=== PATIENT | female | born 1995 | race Caucasian/White ===

== ENCOUNTER 2016-09-07 14:23 | Observation (INO) ==
--- NOTE | 2016-09-07 14:40 | Emergency Department Note ---
Disposition Time of Disposition: 15:09 <Kingsley Gilbert - Last Filed: 09/07/16 15:08> Time of Disposition: 17:47 <Luz Castro - Last Filed: 09/07/16 18:08> Clinical Impression: Tachycardia, Pharyngitis, Abnormal EKG Disposition: Admitted As Inpatient Condition: Good URI/Sore Throat HPI - General Source: patient Limitations: no limitations Nursing Notes Reviewed: Yes Vital Signs Reviewed: Yes - History of Present Illness Pt Subjective Complaint: sore throat, earache (right), other (sinus pain and pressure) Onset (ago): day(s) (2) Duration: gradually worsening Severity: mild Severity scale (1-10): 4 Improves with: nothing Worsens with: swallowing Context: sick contacts Associated symptoms: Reports: diaphoresis. Denies: fever, nasal congestion, chest pain, shortness of breath, abdominal pain, nausea, vomiting, diarrhea Treatments prior to arrival: other (dayquil) <Kingsley Gilbert - Last Filed: 09/07/16 15:08> <Luz Castro - Last Filed: 09/07/16 18:08> - General Chief Complaint: ED Upper Respiratory Infection Stated Complaint: sore throat, ear pain Time Seen by Provider: 09/07/16 14:26 - History of Present Illness HPI Narrative: Alert and oriented nontoxic-appearing 20-year-old female presents to emergency department for evaluation of sore throat, sinus pain and pressure, and a right earache. Patient states symptoms began 2 days ago and progressively gotten worse. She states that her significant other currently has strep throat. She denies any abdominal pain, nausea, vomiting, diarrhea. She denies any fevers or chills, however states that she has had intermittent episodes of diaphoresis. She denies any shortness of breath or chest pain. She is taking [id number] DayQuil with only modest relief of symptoms. (Kingsley Gilbert) - Related Data Home Medications Medication Instructions Recorded Confirmed D-Methorphan/PE/Acetaminophen 1 each PO Q6H PRN 09/07/16 09/07/16 [Vicks Dayquil Liquicaps] Allergies Allergy/AdvReac Type Severity Reaction Status Date / Time No Known Allergies Allergy Verified 02/26/15 12:31 All systems ED: reviewed and negative except as stated. Constitutional: Denies: fever, chills, weakness, weight change Eyes: Denies: eye pain, eye discharge, vision change ENT ED: Reports: as per HPI, ear pain (right), throat pain, congestion. Denies : dental pain, hearing loss, epistaxis, dysphagia Cardiovascular: Denies: chest pain, palpitations, dyspnea on exertion, edema, syncope Respiratory: Denies: cough, dyspnea, wheezes, hemoptysis, stridor Gastrointestinal: Denies: abdominal pain, nausea, vomiting, diarrhea, constipation, hematemesis, melena, hematochezia Genitourinary: Denies: dysuria, frequency, hematuria, discharge Musculoskeletal: Denies: back pain, neck pain, arthralgia, myalgia Integumentary: Denies: rash, abrasion, lesions Neurological: Denies: headache, weakness, numbness, paresthesias, confusion, abnormal gait, vertigo Psychiatric: Denies: anxiety, depression, suicidal thoughts, homicidal thoughts , auditory hallucinations, visual hallucinations Endocrine: Denies: fatigue Hematological/Lymphatic: Denies: easy bleeding, easy bruising Allergic/Immunologic: Denies: facial swelling, urticaria <Kingsley Gilbert R - Last Filed: 09/07/16 15:08> URI PMH - Past Medical History Medical history: Reports: migraine, SVT Surgical history: Reports: other Psychiatric history: Reports: no psych history - Social History Smoking Status: Former smoker Alcohol use: Reports: none Drug use: Reports: none <Kingsley Gilbert R - Last Filed: 09/07/16 15:08> Physical Exam - General Limitations: no limitations General appearance: alert, in no apparent distress - Head Head exam: atraumatic, normocephalic, normal inspection - Eye Eye exam: Present: normal appearance, PERRL, EOMI. Absent: nystagmus - ENT ENT exam: mucous membranes moist - Expanded ENT Exam External ear exam: Present: normal external inspection. Absent: periauricular adenopathy TM/Canal: Hemotympanum: Negative, Erythema: Negative, Bulging: Negative, Effusion: Negative, Perforation: Negative, Loss of Landmarks: Negative, Foreign body: Negative, Cerumen impaction: Negative, Canal discharge: Negative, Canal tenderness: Negative Nose exam: sinus tenderness (maxillary). negative: rhinorrhea Mouth exam: Present: normal external inspection, tongue normal. Absent: drooling, trismus, lip swelling Teeth exam: Present: normal inspection Throat exam: Present: tonsillar erythema (moderate), other (Patient is status post tonsillectomy, however, patchy exudate appears on the posterior pharynx.). Absent: R peritonsillar mass, L peritonsillar mass, muffled voice - Neck Neck exam: Present: normal inspection, full ROM, trachea midline, lymphadenopathy (Palpable tonsillar lymphadenopathy noted bilaterally) - Chest Chest inspection: Present: normal inspection, symmetric chest wall rise - Respiratory Respiratory exam: Present: normal lung sounds bilaterally. Absent: respiratory distress, wheezes, stridor, accessory muscle use, prolonged expiratory phase - Cardiovascular Cardiovascular exam: Present: regular rate, normal rhythm, normal heart sounds - Abdominal Exam Abdominal exam: Present: soft, Non-Tender, normal bowel sounds. Absent: tenderness, distention, guarding, rebound, rigidity - Extremities Exam Extremities exam: Present: normal inspection, full ROM. Absent: tenderness, pedal edema - Neurological Exam Neurological exam: Present: alert, oriented X3 - Psychiatric Psychiatric exam: Present: normal affect, normal mood - Skin Skin exam: Present: warm, dry, intact, normal color <Kingsley Gilbert - Last Filed: 09/07/16 15:08> Course <Kingsley Gilbert - Last Filed: 09/07/16 15:08> - Reevaluation(s) Time: 16:02 Time: 16:23 Time: 17:17 <Luz Castro - Last Filed: 09/07/16 18:08> Course Narrative: This patient was directly admitted into the fast track/super track area. I entered the room and asked the nurse was obtaining a set of triage vitals. The patient's heart rate was noted to fluctuate between 130 and 157. She denies any current chest pain, palpitations, or shortness of breath, however states that she was having all 3 of these to an extent yesterday evening. EKG was performed and shown to the attending physician, Dr. Gagnon, who recommends that the patient be moved out of the fast track/super track area and into a proper medical bed. 1505: I discussed this patient's case with Dr. Castro, as this patient will be moved into her assignment. As of this time, care of this patient has been assumed by Dr. Castro. (OfeliaKyaleey Yovana) - Reevaluation(s) Reevaluation #1: Patient is an otherwise healthy 20-year-old white female who was brought from the [facility] area by the [facility]NA[facility], for medical workup and the main side of the ED due to sinus tachycardia. Was reported that her heart rate in [facility] weighs between 130 and 160 bpm, and EKG was obtained in the [facility] area showing sinus tachycardia at 117 bpm with new T-wave inversion across the anterior leads. Patient at this time denies any form of chest pain pressure or heaviness. No episodes of syncope at home. No shortness of breath or cough or hemoptysis. Patient denies any symptoms of palpitations during this episode of fast heart rate. Patient does state that she had an episode of SVT during her , and was referred to [facility] and observed overnight with a Holter monitor during her for her SVT. Patient states she did not require any medication to slow her heart rate down at that time, and she was not prescribed any heart medications upon overnight observation for tachycardia. Patient had not had any cardiac history prior to her , and no episodes or cardiac evaluations following delivery of her child. Upon my evaluation of the patient she is very active chasing her toddler son around the room, in no acute distress. Upon resting and evaluating the patient , patient's heart rate remained in a sinus rhythm in the 90s, and at this time she denies any form of chest pain or pressure, no heaviness, no shortness of breath or dyspnea. Patient denies any current diaphoresis, no nausea vomiting, no back or abdominal pain. She states her main reason for evaluation today was a sore throat that she has had over the past 48 hours it has gradually worsened and has had a recent strep exposure with her boyfriend. Patient complains of pain with swallowing, although managing her secretions well, no stridor appreciated, no signs of respiratory distress. Patient nontoxic appearing. Patient has mild pharyngeal erythema without exudates, good dentition, floor the mouth is within normal limits. Patient with some mild cervical adenopathy in the bilateral anterior cervical chains. Remainder of her exam is unremarkable. At this time will hydrate the patient and obtain labs that were ordered from triage and will reevaluate patient with a repeat EKG following hydration. (Luz Castro) Reevaluation #2: Patient resting comfortably with stable vital signs. Remains asymptomatic, with the exception of mild sore throat. Awaiting IV fluids. Laboratory Results WBC 7.9 K/mcL (4.3-11.1) 09/07/16 15:21 RBC 4.63 M/mcL (3.82-4.97) 09/07/16 15:21 Hgb 14.1 g/dL (11.5-15.4) 09/07/16 15:21 Hct 41.8 % (35.3-44.9) 09/07/16 15: MCV 90.3 fL (83.0-100.0) 09/07/16 15: MCH 30.5 pg (28.0-33.3) 09/07/16 15: MCHC 33.7 g/dL (31.6-35.5) 09/07/16 15: RDW 12.4 % (11.5-14.5) 09/07/16 15:21 Plt Count 140 K/mcL (140-400) 09/07/16 15: MPV 13.2 fL (9.4-12.4) H 09/07/16 15: Immature Gran % 0.3 % (0-4) 09/07/16 15: Seg Neutrophils % 71.0 % 09/07/16 15:21 Lymphocytes % 21.0 % 09/07/16 15:21 Monocytes % 7.0 % 09/07/16 15:21 Eosinophils % 0.3 % 09/07/16 15:21 Basophils % 0.4 % 09/07/16 15:21 Neutrophils # 5.6 K/mcL (1.6-8.9) 09/07/16 15:21 Lymphocytes # 1.7 K/mcL (0.6-4.6) 09/07/16 15:21 Monocytes # 0.6 K/mcL (0.0-1.3) 09/07/16 15:21 Eosinophils # 0.0 K/mcL (0.0-0.6) 09/07/16 15:21 Basophils # 0.0 K/mcL (0.0-0.2) 09/07/16 15:21 PT 12.4 Seconds (9.4-12.1) H 09/07/16 15:21 INR 1.1 09/07/16 15:21 APTT 31.2 Seconds (26.0-36.0) 09/07/16 15:21 Sodium 138 mEq/L (136-145) 09/07/16 15:21 Potassium 3.9 mEq/L (3.5-4.5) 09/07/16 15:21 Chloride 106 mEq/L (98-109) 09/07/16 15:21 Carbon Dioxide 23 mEq/L (19-29) 09/07/16 15:21 BUN 15 mg/dL (7-20) 09/07/16 15:21 Creatinine 0.72 mg/dL (0.57-1.11) 09/07/16 15:21 Est GFR ( Amer) > 60 (> 60) 09/07/16 15:21 Est GFR (Non-Af Amer) > 60 (> 60) 09/07/16 15:21 BUN/Creatinine Ratio 21 (6-26) 09/07/16 15:21 Glucose 77 mg/dL (70-99) 09/07/16 15:21 Calculated Osmolality 286 (280-300) 09/07/16 15:21 Calcium 8.8 mg/dL (8.6-10.8) 09/07/16 15:21 Troponin I 0.00 ng/mL (0-0.03) 09/07/16 15:21 Impressions Chest X-Ray 09/07/16 14:53 IMPRESSION: No acute cardiopulmonary process. D/ / 09/07/2016 15:11:45 Valdemar Eagle MD / Citlali Reyna Interpreting Provider: Valdemar Eagle MD (Luz Castro) Reevaluation #3: Patient's IV fluids if completed, she is feeling better at bedside. Denies any active chest pain or pressure. Repeat EKG interpreted by myself without benefit of cardiology interpretation shows a normal sinus rhythm at 78 bpm with right axis deviation and T wave inversion in the anterior leads representing anterior ischemia. This is a new finding compared to her old EKG although similar to her presenting EKG. I do not have a good explanation for these EKG changes and feel that this requires further evaluation. I will discuss with the patient and offer admission for further evaluation of this. (Luz Castro) Vital Signs Temperature 97.7 F 09/07/16 14:28 Pulse Rate 135 09/07/16 14:28 Respiratory Rate 18 09/07/16 14:28 Blood Pressure 121/85 09/07/16 14:28 O2 Sat by Pulse Oximetry 98 09/07/16 14:28 Temperature 97.7 F 09/07/16 14:28 Pulse Rate 91 09/07/16 17:10 Respiratory Rate 16 09/07/16 17:10 Blood Pressure 135/86 09/07/16 17:10 O2 Sat by Pulse Oximetry 99 09/07/16 17:10 Oxygen Delivery Oxygen Delivery Room Air Upper Respiratory Infection - Medical Records Medical records reviewed: Yes I reviewed the patient's medical records. - Lab Data Lab results reviewed: Yes I reviewed the patient's lab results. - EKG Data EKG attestation: Yes I reviewed and interpreted this EKG. <OfeliaKingsley - Last Filed: 09/07/16 15:08> - Lab Data Result diagrams: 09/07/16 15:21 09/07/16 15:21 - Radiology Data Radiology results reviewed: Yes I reviewed the patient's radiology results. <Luz Castro - Last Filed: 09/07/16 18:08> - [facility] Narrative Medical decision making narrative: Patient resting comfortably at this time with improved vital signs following IV fluid administration. Current heart rate is 78 normal sinus. Patient is asymptomatic at this time. Repeat EKG shows persistent T wave inversion across the anterior leads. EKG changes are unclear although patient did have tachycardia in triage up to 180 bpm and reported symptoms of chest pain over the last 48 hours but none currently. Spoke with hospitalist Dr. JEFFRIES at 1745 who accepted the patient for admission for further evaluation but did request that we touch base with cardiology to review the EKG. I will page the information security manager who is Dr. Mcdaniel currently. Patient will be admitted for further evaluation and is stable at this time. Spoke with Dr. Mcdaniel, on for cardiology this evening at 1805. Discussed the patient's ED course and EKG changes. He agreed to consult on the patient recommended serial troponins be ordered and he would see the patient in the morning. (Luz Castro) - Lab Data Lab Results 09/07/16 09/07/16 09/07/16 Range/Units 15:21 15:21 15:21 WBC 7.9 (4.3-11.1) K/mcL RBC 4.63 (3.82-4.97) M/mcL Hgb 14.1 (11.5-15.4) g/dL Hct 41.8 (35.3-44.9) % MCV 90.3 (83.0-100.0) fL MCH 30.5 (28.0-33.3) pg MCHC 33.7 (31.6-35.5) g/dL RDW 12.4 (11.5-14.5) % Plt Count 140 (140-400) K/mcL MPV 13.2 H (9.4-12.4) fL Immature Gran % 0.3 (0-4) % Seg Neutrophils % 71.0 % Lymphocytes % 21.0 % Monocytes % 7.0 % Eosinophils % 0.3 % Basophils % 0.4 % Neutrophils # 5.6 (1.6-8.9) K/mcL Lymphocytes # 1.7 (0.6-4.6) K/mcL Monocytes # 0.6 (0.0-1.3) K/mcL Eosinophils # 0.0 (0.0-0.6) K/mcL Basophils # 0.0 (0.0-0.2) K/mcL PT 12.4 H (9.4-12.1) Seconds INR 1.1 APTT 31.2 (26.0-36.0) Seconds Sodium 138 (136-145) mEq/L Potassium 3.9 (3.5-4.5) mEq/L Chloride 106 (98-109) mEq/L Carbon Dioxide 23 (19-29) mEq/L BUN 15 (7-20) mg/dL Creatinine 0.72 (0.57-1.11) mg/dL Est GFR ( Amer) > 60 (> 60) Est GFR (Non-Af Amer) > 60 (> 60) BUN/Creatinine Ratio 21 (6-26) Glucose 77 (70-99) mg/dL Calculated Osmolality 286 (280-300) Calcium 8.8 (8.6-10.8) mg/dL Troponin I (0-0.03) ng/mL TSH (0.350-4.840) mcIU/mL 09/07/16 09/07/16 Range/Units 15:21 15:21 WBC (4.3-11.1) K/mcL RBC (3.82-4.97) M/mcL Hgb (11.5-15.4) g/dL Hct (35.3-44.9) % MCV (83.0-100.0) fL MCH (28.0-33.3) pg MCHC (31.6-35.5) g/dL RDW (11.5-14.5) % Plt Count (140-400) K/mcL MPV (9.4-12.4) fL Immature Gran % (0-4) % Seg Neutrophils % % Lymphocytes % % Monocytes % % Eosinophils % % Basophils % % Neutrophils # (1.6-8.9) K/mcL Lymphocytes # (0.6-4.6) K/mcL Monocytes # (0.0-1.3) K/mcL Eosinophils # (0.0-0.6) K/mcL Basophils # (0.0-0.2) K/mcL PT (9.4-12.1) Seconds INR APTT (26.0-36.0) Seconds Sodium (136-145) mEq/L Potassium (3.5-4.5) mEq/L Chloride (98-109) mEq/L Carbon Dioxide (19-29) mEq/L BUN (7-20) mg/dL Creatinine (0.57-1.11) mg/dL Est GFR ( Amer) (> 60) Est GFR (Non-Af Amer) (> 60) BUN/Creatinine Ratio (6-26) Glucose (70-99) mg/dL Calculated Osmolality (280-300) Calcium (8.6-10.8) mg/dL Troponin I 0.00 (0-0.03) ng/mL TSH 2.482 (0.350-4.840) mcIU/mL - EKG Data EKG results narrative: EKG reviewed by Dr. Gagnon as well. EKG shows a sinus tachycardia with right axis deviation at a rate of 117 bpm. No ectopy noted. No STEMI. (Kingsley Gilbert) S.Risa. - SRoxann.A.R. Situation: Demographics, MOA Background: Presenting Complaint, Relevant PMH, Meds, & Allergies Assessment: Vital Signs, Course and respsone to treatment, Exam Concerns, Patient/Family Expectation, Pertinant Lab Results, Outstanding Labs Recommendation: Barrier(s) to disposition, Recommendation based on pending studies, treatments, or consults S.B.A.R. Report Given to: Dr. Gloria Steinberg Repor Time: 15:05 <Kingsley Gilbert - Last Filed: 09/07/16 15:08> Attestation Statement <Kingsley Gilbert - Last Filed: 09/07/16 15:08> <Luz Castro - Last Filed: 09/07/16 18:08> - Attestation Attestation: I personally interviewed and examined this patient and my medical decision- making was reviewed with the SH[facility]NA[facility]. I agree with the documented findings, disposition and treatment plan as described in the documentation. I personally resumed care of the patient upon her transfer to the main ED side. (Luz Castro)
[2016-09-07 15:46] LABS: Basophils % 0.4 %; Eosinophils % 0.3 %; Hematocrit 41.8 % (35.3-44.9); Hemoglobin 14.1 g/dL (11.5-15.4); Immature Granulocytes % 0.3 % (0-4); Lymphocytes # 1.7 K/mcL (0.6-4.6); Mean Corpuscular HGB Conc 33.7 g/dL (31.6-35.5); Mean Corpuscular Hemoglobin 30.5 pg (28.0-33.3); Mean Corpuscular Volume 90.3 fL (83.0-100.0); Mean Platelet Volume 13.2 fL (9.4-12.4); Monocytes # 0.6 K/mcL (0.0-1.3); Neutrophils # 5.6 K/mcL (1.6-8.9); Platelet Count 140 K/mcL (140-400); Red Blood Count 4.63 M/mcL (3.82-4.97); Red Cell Distribution Width 12.4 % (11.5-14.5)
[2016-09-07 15:51] LABS: INR 1.1; Prothrombin Time 12.4 Seconds (9.4-12.1)
[2016-09-07 15:54] LABS: Activated Partial Thrombo Time 31.2 Seconds (26.0-36.0)
[2016-09-07] MEDS ORDERED: 0.9 % Sodium Chloride 1,000 ML IVC ONE (15:56)
[2016-09-07 16:01] LABS: BUN/Creatinine Ratio 21 (6-26); Blood Urea Nitrogen 15 mg/dL (7-20); Calcium 8.8 mg/dL (8.6-10.8); Carbon Dioxide 23 mEq/L (19-29); Chloride 106 mEq/L (98-109); Glucose 77 mg/dL (70-99); Osmolality,Calculated 286 (280-300); Potassium 3.9 mEq/L (3.5-4.5); Sodium 138 mEq/L (136-145); eGFR For African Americans > 60 (> 60); eGFR For Non-African Americans > 60 (> 60)
[2016-09-07] MEDS ORDERED: Naloxone 0.4 MG/ML INJ IVP PRN (20:27)
[2016-09-07] MEDS ORDERED: Acetaminophen 325 MG TABLET PO PRN (20:27)
[2016-09-07] MEDS ORDERED: Ondansetron 4 MG/2 ML VIAL IVP PRN (20:27)
--- NOTE | 2016-09-07 20:38 | Internal Med History&Physical ---
Date of Encounter: 09/07/16 Time of Encounter: 20:05 Assessment and Plan (1) Tachycardia Current visit: Yes Status: Acute 1. I suspect this is due to OTC cold medication -- pseudoephedrine component. 2. Stop OTC cold medication. 3. Will monitor on telemetry. 4. Cycle troponins and KEG. 5. Will check D-Dimer -- if abnormal, will check CTA chest. However, in the absence of symptoms, I have low suspicion of PE. Her risk for PE include hormonal contraception. She does not smoke. 6. Cardiology consulted by ER. (2) Pharyngitis Current visit: Yes Status: Acute 1. Suspect this is viral. However, she does have tender right anterior cervical lymphadenopathy. 2. Will check Monospot. 3. Will start Amoxicillin while waiting for throat culture. Qualifiers: Pharyngitis/tonsillitis etiology: unspecified etiology Qualified Code(s): J02.9 - Acute pharyngitis, unspecified (3) DVT prophylaxis Current visit: Yes Status: Acute 1. Heparin SQ. Internal Medicine - H&P: HPI Chief complaint: sore throat Admitted From: Emergency Dept Plans for Post Hospital Care: Home History of present illness: Ms. Patiño is a 20 year old female who presented to the ER tonight with complaints of sore throat and earache. Symptoms started about 3 days ago, and she has been taking tuho-zuz-opexlxe cold medications in hopes of relieving her symptoms. However, symptoms persisted and she came to the ER for evaluation. In the ER, she was noted to be tachycardic with a heart rate of 117. She had EKG, which revealed some subtle EKG changes prompting admission to the hospitalist service. Additionally, ER staff talked with cardiology (Dr. Jonh Mcdaniel) and requested consultation from him. Upon my assessment of the patient, she denies any chest pain, palpitations, lightheadedness, dizziness, shortness of breath, cough, or any pleurisy. Her one and only complaint was sore throat and pain radiating to her right ear. She denies any fevers, chills, night sweats, vomiting, and/or diarrhea. Her boyfriend recently had strep throat, and she was concerned she had strep throat. She has been taking hrxw-vjq-mnhqwzo DayQuil the last 3 days. This medication does have pseudoephedrine in it and is likely causing some tachycardia. She also has a history of sinus tachycardia with her last . She was hospitalized overnight at [facility] when she was and placed on Holter monitor at discharge. She has had no further workup and/or follow-up since then. She is on Depo-Provera shots for contraception. She does not smoke. She has never had any lung or heart problems otherwise. Past Med Surg Social Fam HX - Past Medical History Attestation: Yes The following information was validated with the patient. Source: patient, old records reviewed Medical history: migraine, other (h/o sinus tachycardai with last ) Psychiatric history: no psych history - Past Surgical History Surgical History: other (tonsillectomy) - Social History Smoking Status: Former smoker Smokeless Tobacco Status: No Alcohol use: none Drug use: none Occupational status: employed Current living situation: Home, With Family Activity Level: Independent ambulation Recent Out of Country Travel Within the Last 8 Weeks: No - Family History Mother Hx Family Cardiac Disorders: Yes (heart murmur) Paternal Grandfather Family Member Ethnicity: Non- Living Status: Hx Family Cardiac Disorders: No Hx Family Respiratory Disorders: No Hx Family Cancer: No Hx Family GI Disorders: No Hx Family Endocrine Disorder: No Hx Family Neuromuscular Disorders: No Hx Family Neurologic Disorders: No Hx Family HEENT Disorders: No Hx Family Autoimmune Disorders: No Father Living Status: Still Living (alive and well) Hx Family Cardiac Disorders: No Internal Medicine - H&P: Meds D-Methorphan/PE/Acetaminophen [Vicks Dayquil Liquicaps] 1 each PO Q6H PRN [History] Allergies No Known Allergies Allergy (Verified 02/26/15 12:31) - Constitutional Constitutional: no chills, no fever(s), no night sweats - EENT Eyes: no blurry vision, no change in vision Ears: ear pain (right ear ), no tinnitus Nose, mouth and throat: sore throat, no nasal congestion, no nasal discharge, no post-nasal drip, no sinus pain, no sinus pressure - Cardiovascular Cardiovascular ROS IM: no chest pain, no diaphoresis, no dyspnea, no dyspnea on exertion, no irregular heart rhythm, no lightheadedness, no orthopnea, no palpitations, no syncope - Respiratory Respiratory: no cough, no dyspnea, no hemoptysis, no dyspnea on exertion, no wheezing, no pain on inspiration, no chest congestion, no excessive phlegm production, no change in phlegm color, no pain with cough - Gastrointestinal Gastrointestinal: no abdominal pain, no diarrhea, no hematemesis, no hematochezia, no melena, no nausea, no vomiting - Genitourinary Genitourinary: amenorrhea (secondary to Depo-Provera), no abnormal menses, no abnormal vaginal bleeding, no dysuria, no flank pain, no hematuria - Musculoskeletal Musculoskeletal ROS IM: no arthralgias, no back pain, no muscle weakness, no myalgias - Integumentary Integumentary IM: no rash, no jaundice - Neurological Neurological ROS: no disequilibrium, no dizziness, no headache(s) - Psychiatric Psychiatric: no anxiety, no depression - Endocrine Endocrine IM: no cold intolerance, no heat intolerance - Hematologic/Lymphatic Hematologic/Lymphatic: lymphadenopathy, no easy bruising - Allergic/Immunologic Allergic/Immunologic: no wheezing, no GI upset with certain foods - Constitutional Vitals: Temp Pulse Resp BP Pulse Ox 97.7 F 91 16 126/75 99 09/07/16 14:28 09/07/16 17:10 09/07/16 19:39 09/07/16 19:39 09/07/16 17:10 General appearance: Present: cooperative, A&O X 3, pleasant, no acute distress, answers questions appropriately - Head Head exam: Present: atraumatic, normal inspection - Expanded Head Exam Head exam expanded: Absent: general tenderness - Eye Eye exam: Present: EOMI, normal appearance, PERRL. Absent: scleral icterus Pupils: Present: normal accommodation - ENT ENT exam: Present: normal oropharynx, TM's normal bilaterally Additional comments: absent tonsils; no abnormality appreciated in oropharynx; palpable/tender right anterior cervical lymphadenopathy - Expanded ENT Exam Throat exam: Present: normal inspection - Neck Neck exam general surgery: Present: full ROM, lymphadenopathy (right anterior cervical LA), supple, trachea midline - Respiratory Respiratory exam: Present: CTAB. Absent: accessory muscle use, chest wall tenderness, rales, respiratory distress, rhonchi, wheezes - Cardiovascular Cardiovascular exam: Present: RRR, +S1, +S2. Absent: diastolic murmur, irregular rhythm, systolic murmur - GI/Abdominal GI/Abdominal exam: Present: normal bowel sounds, soft. Absent: hepatomegaly, mass, splenomegaly, tenderness - Extremities Exam Extremities exam: Present: full ROM, warm. Absent: calf tenderness, joint swelling, pedal edema, tenderness Additional comments: no axillary or inguinal lymphadenopathy - Back Exam Back exam: Present: normal inspection. Absent: CVA tenderness (L), CVA tenderness (R) - Neurological Exam Neurological exam: Present: alert, CN II-XII intact, oriented X3, no focal deficits - Psychiatric Psychiatric exam: Present: normal affect, normal mood - Skin Skin exam: Present: dry, warm. Absent: rash Internal Med - H&P Results - Labs CBC & Chem 7: 09/07/16 15:21 09/07/16 15:21 - EKG Data -: EKG Interpreted by Myself EKG shows normal: sinus rhythm Rate: tachycardia - EKG Data Prior EKG available for review: yes When compared to previous EKG: there are significant changes EKG comments: 09/07/16 20:46 Sinus tachycardia with flipped T-waves in precordial leads - Diagnostic Studies Chest x-ray Status: image reviewed by me (negative)
[2016-09-07] MEDS: Amoxicillin 500 MG CAPSULE PO SCH (21:47)
[2016-09-07] MEDS: Ibuprofen 400 MG TABLET PO PRN (21:47)
[2016-09-07] MEDS: *HR* Heparin 5,000 UNIT/ML VIAL SQ SCH (21:48)
[2016-09-08] MEDS: Ibuprofen 400 MG TABLET PO PRN ×2 (04:10→15:20)
[2016-09-08] MEDS: *HR* Heparin 5,000 UNIT/ML VIAL SQ SCH (06:09)
[2016-09-08] MEDS: Amoxicillin 500 MG CAPSULE PO SCH ×2 (09:07→15:10)
--- NOTE | 2016-09-08 09:13 | Cardiology Consult Note ---
Date of Encounter: 09/08/16 Time of Encounter: 07:50 Assessment and Plan (1) Abnormal EKG Current Visit: Yes Status: Acute New T-wave inversions noted on ECG upon presentation, V2-V3. Etiology unclear. May be secondary to improper lead placement. She denies chest pain or discomfort, activity intolerance, fatigue, or shortness of breath. No family of CAD. 5 year hx of tobacco use, quit 2.5 years ago; otherwise no risk factors for CAD. Troponin negative x3. Do not suspect this is a significant finding. Will check 2-D echocardiogram to eval structure and function; if results satisfactory Cardiology will sign-off. (2) Tachycardia Current Visit: Yes Status: Acute HR 130's upon arrival to ED--ST. Has resolved with stopping OTC cold medication with psuedoephedrine component Telemetry review: avg HR=85 SR. Denies shortness of breath, fatigue, palpitations, or dizziness. Discussion w patient/family: The assessment and plan as outlined above was discussed with the patient and/or family members who expressed understanding and agreement. All questions were answered. Thank you for involving us in the care of your patient. Please call with any questions. History of Present Illness Consult date: 09/08/16 Requesting physician: Yariel Ash Consult reason: Abnormal ECG Chief complaint: Right throat/ear pain History of present illness: Ms. Patiño is a 20 year old female with no significant PMH who presented to the ED with a 3-day history of right-sided ear and throat pain. Shanice has been taking OTC Dayquil for symptom relief. Symptoms continued to worsen yesterday and therefore came to the ED for further evaluation. She was found to be tachycardiac with HR reportedly in the 130's upon arrival and noted to have T wave changes V1-V3 on ECG. She denies chest pain or discomfort, shortness of breath, activity intolerance, palpitations, syncope, dizziness or fatigue. Denies family history significant for CAD. Shanice was diagnosed with sinus tachycardia during that resolved after delivery. Her only complaint is right ear/throat soreness and pain. Reports 5 year hx of smoking (0.5 ppd), quit 2.5 year ago. Past Med Surg Social Fam HX - Past Medical History Attestation: Yes The following information was validated with the patient. Source: patient Medical history: migraine, other (h/o sinus tachycardia with last ) Psychiatric history: no psych history - Past Surgical History Surgical History: other (tonsillectomy) - Social History Smoking Status: Former smoker Smokeless Tobacco Status: No Alcohol use: none Drug use: none - Family History Mother Hx Family Cardiac Disorders: Yes (heart murmur) Father Living Status: Still Living (alive and well) Hx Family Cardiac Disorders: No Paternal Grandfather Family Member Ethnicity: Non- Living Status: Hx Family Cardiac Disorders: No Hx Family Respiratory Disorders: No Hx Family Cancer: No Hx Family GI Disorders: No Hx Family Endocrine Disorder: No Hx Family Neuromuscular Disorders: No Hx Family Neurologic Disorders: No Hx Family HEENT Disorders: No Hx Family Autoimmune Disorders: No Medications and Allergies D-Methorphan/PE/Acetaminophen [Vicks Dayquil Liquicaps] 1 each PO Q6H PRN [History] Allergies No Known Allergies Allergy (Verified 02/26/15 12:31) All Systems Review: A 10-system review of systems was performed and is negative for pertinent findings except as documented above in the HPI. - Cardiovascular Cardiovascular: as per HPI Physical Examination Vital Signs, Last 4 Hours Temp Pulse Resp BP 09/08/16 07:05 97.6 F 98 16 86/45 General: Conversant, No Apparent Distress HEENT: Atraumatic, Normocephaly, Mucus Membranes Moist Cardiac: Reg Rate and Rhythm, Normal S1 and S2 Lungs: Normal Breath Sounds Neuro: Alert and responsive Abdomen: Soft Skin: No rashes noted on visualized skin Musculoskeletal: No Chest Wall Tenderness Extremities: No Edema, Normal Pulses Results 09/07/16 15:21 09/07/16 15:21 Lab Results 09/07/16 09/07/16 09/08/16 21:23 21:23 04:31 D-Dimer 1124 H Troponin I 0.00 0.00 - Imaging and Cardiology Other Results: Telemetry review: avg HR 85 SR. - EKG Interpretation EKG results cardiology: personally reviewed (with Dr. Jonh Mcdaniel) Consult Discharge Plan - Plan Referrals: NO,PCP [Primary Care Provider] -
--- NOTE | 2016-09-08 15:17 | ECHO - Doppler Report ---
Echocardiogram Name: Juan Patiño Date of Study: 09/08/2016 Date: 1995 Ht: 64.0 in Medical Record#: [id number] Age: 20 Wt: 145.0 lb Gender: Female BSA: 1.71 Order #: [id number] Location: [facility] Room #: [facility] Reading Physician: Lauren Ruiz DO [place] Feeder: Vladimir Steen RVT, [facility] Ordering Physician: Marylou Cao CNP Primary Physician: None Impressions: LVEF 60%. Normal left ventricular size and systolic function. Normal diastolic function of the left ventricle. Normal right ventricular size and function. No significant valvular dysfunction. No pulmonary hypertension. Left Ventricular Wall Motion: Rest Echo Findings All wall segments showed normal motion. Findings: Study Quality * Technically adequate exam. ECG Findings * Normal sinus rhythm. Left Ventricle * LVEF 60%. * Normal LV chamber size, wall thickness and function. * Normal left ventricular diastolic function. Aortic Valve * No aortic regurgitation. * Trileaflet aortic valve. * Normal aortic valve structure. * No aortic stenosis. Mitral Valve * Normal mitral valve structure. * No mitral regurgitation. * No mitral stenosis. Tricuspid Valve * Tricuspid valve not well visualized. * No tricuspid regurgitation. Pulmonic Valve * Pulmonic valve is not well visualized. * No pulmonic stenosis. * No pulmonic regurgitation. Pulmonary Artery * Pulmonary artery not well visualized. Right Ventricle * Normal right ventricular structure and function. Left Atrium * Normal left atrial size. Right Atrium * Normal right atrial size. Interatrial Septum * No evidence of PFO by color Doppler. Pericardium * There is no pericardial effusion present. Aorta * Normally sized aortic root. IVC * Normal IVC dimensions and inspiratory collapse. History Years 5 Packs 0.5 07/24/2015 a Previous Echo was performed. Measurements: BP: 86/ 45 2D Normal Values RVIDd: 2.77 cm <2.7 cm IVSd: .73 cm 0.6 - 1.0 cm LVIDd: 4.50 cm 3.7 - 5.6 cm LVPWd: .98 cm 0.6 - 1.1 cm LVIDs: 2.89 cm 1.5 - 3.6 cm AO: 2.50 cm < 4.0 cm LA: 3.20 cm 2.0 - 4.0cm %FS: 35.80 cm >25 % LVOT Diam: 1.80 cm LA volume: 27 Mitral Valve Peak E:.90 m/sec Peak A:.66 m/sec E/A Ratio:1.4 Peak E' Lat Ceferino:9.25 cm/s Peak E' Med Ceferino:12.6 cm/s E/E' Lat Ratio:9.7 E/E' Med Ratio:7.1 Updated by Lauren Ruiz on 09/08/2016 3:10:49 PM electronically signed on 09/08/2016 3:11:31 PM with status of Final Wall Motion Brooks: 1=Normal, 2=Hypokinesis, 3=Akinesis, 4=Dyskinesis, 5=Aneurysmal, 6=Hyperkinetic, X=Not Visualized (Blank)=Missing
[2016-09-08 15:31] VITALS: BP 107/65
[2016-09-08] MEDS ORDERED: 0.9 % Sodium Chloride 1,000 ML IVC ONE (16:10)
[2016-09-08] MEDS ORDERED: 0.9 % Sodium Chloride 500 ML IVC ONE (16:11)
[2016-09-08] MEDS ORDERED: *HR* OxyCODONE/APAP 5/325 TABLET PO ONE (16:15)
--- NOTE | 2016-09-08 17:17 | Discharge Summary ---
Date of Encounter: 09/08/16 Time of Encounter: 14:30 - Discharge Diagnosis (1) Tachycardia Priority: Primary Status: Chronic Comments: Pt was admitted last p.m through the ED for tachycardia. Pt has history of tachycardia during , approx 1 year ago. Patient states that she has been taking DayQuil for the last few days for URI symptoms, sore throat, and cough. DayQuil was stopped during admission, however, during the exam patient' s pulse was 108. She denies shortness of breath dizziness or chest pain with this pulse. Troponins were negative 3. Patient was seen by cardiology and an echocardiogram was done. Echo shows LVEF 60%, normal left ventricular size and systolic function, normal diastolic function of the left ventricle no pulmonary hypertension, no significant valvular dysfunction, and normal right ventricular size and function. Cardiology signed off and said that if echo is negative patient could go home. I went in to discuss echo results with patient again she was tachycardic this time she was symptomatic. She said that her right neck was painful. I offered her a Percocet since she is not driving, we will also give her a fluid bolus in attempt to lower her pulse. The monitor does show normal sinus rhythm. Pulse does slow into the high 60s. (2) Pharyngitis Priority: Secondary Status: Acute Comments: Patient has had a sore throat, URI symptoms, sinus pressure, and right neck pain that radiates into her right jaw and ear. She was taking DayQuil for the symptoms. She lives with her boyfriend who was recently diagnosed with strep throat and treated with antibiotics. Patient's strep test was negative, as was her Monospot. I seen no drainage in the back of her throat and tonsils are +1. Will suggest saltwater gargles on discharge and throat lozenges. I will discourage use of DayQuil or any ghbe-tyx-csryzff cold I suspect that this pharyngitis is viral and must run its course.Pt's boyfriend was recently diagnose with strep throat and treated with antibiotics. I will send the pt home with a script for Amoxicillin for her to take if she is not feeling better by Saturday. Pt does not have a PCP. Qualifiers: Pharyngitis/tonsillitis etiology: unspecified etiology Qualified Code(s): J02.9 - Acute pharyngitis, unspecified (3) Abnormal EKG Priority: Secondary Status: Acute Comments: Patient's EKG showed sinus tachycardia with T-wave inversion in the precordial leads. Patient was seen by cardiology, echo was done, normal sinus rhythm on bedside monitor rate in the 60s at discharge. (4) Lymphadenopathy Priority: Secondary Status: Acute Comments: Patient has painful, enlarged anterior cervical node on the right side. She states that it causes pain to radiate into her right ear. Right TM is clear with good cone of light no redness or drainage or fluid levels noted. I will send patient home with a prescription for Motrin. I will also suggest that patient follow up with primary care physician or adenopathy measuring care if she is not better in the next 3-4 days. - Discharge Medications Prescriptions: Ibuprofen 800 mg PO Q6HR PRN #20 PRN Reason: Pain Amoxicillin [Amoxil] 500 mg PO TID #21 capsule Sodium Chloride [Saline Nasal Mist] 126 ml NS Q2H PRN #1 mist PRN Reason: Runny Nose Home Medications: Amoxicillin [Amoxil] 500 mg PO TID #21 capsule 09/08/16 [Rx] Ibuprofen 800 mg PO Q6HR PRN #20 09/08/16 [Rx] Sodium Chloride [Saline Nasal Mist] 126 ml NS Q2H PRN #1 mist 09/08/16 [Rx] Allergies/Adverse Reactions: Allergies No Known Allergies Allergy (Verified 02/26/15 12:31) Procedures/tests Complete & Pending: Procedures Performed prior 72 hours Category Date Time Status CT angio chest [CT] Stat Cat Scan 09/07/16 22:08 Draft ECG 12 lead ECG [ECG] AM 0600 Y 09/08/16 06:00 Ordered EV echocardiogram Routine Y 09/08/16 09:13 Completed Date of admission: 09/07/16 17:57 Primary care physician: PCP NO Consults: 09/07/16 18:08 Consult to Cardiology [CONS] Routine Comment: Consulting Provider: Jenifer Brewer Reason for Consult: abnormal EKG Time Notified: 18:08 Call Completed: Yes 09/07/16 20:30 Consult to Physician [CONS] Routine Consulting Provider: Jonh Mcdaniel Reason for Consult: tachycardia; abnormal EKG Call Completed: Yes Discharging clinician: Nano Lanier Anticipated date of discharge: 09/08/16 - Patient Status Disposition: Home, Self-Care Functional capacity at discharge: independent ambulation Overall status at discharge: patient is progressing back to baseline - Discharge Instructions Follow Up With: NO,PCP [Primary Care Provider] - Additional Instructions: Please do warm salt water gargles every 2 hours while you are awake Do not take anymore yomu-icl-qqzatuk cold medicine Throat lozenges and possibly Chloraseptic to spray for throat pain Take Motrin for any pain or fever Use saline nasal spray for congestion I am giving a prescription for amoxicillin. I do not want to take this medication unless you are not significantly better by Saturday. I believe that this is a viral pharyngitis that does not require antibiotics, however I am giving him a prescription in case you need it on Saturday if you are not better by late afternoon. Please return to the emergency department if your heart is racing again or for any other problems or concerns. - Diet and Activity Activity: increase activity as tolerated, resume usual activities as tolerated Diet: advance to your usual diet Hospital course: Ms. Patiño is a 20 year old female who was admitted throught the ED last p.m. for tachycardia. Patient presented to the emergency department with a sore throat, right neck pain, sinus pressure, and right ear pain. Patient had been taking DayQuil for the last day. EKG in the emergency department showed sinus tachycardia with T-wave inversion in the precordial leads. Since d-dimer was elevated sore CTA of the chest was done to rule out a PE. She did not have a PE , she was seen by cardiology today and cleared to go home if her echo was negative. Echo did show left LVEF 60%, normal left ventricular size and systolic function, normal diastolic function of the left ventricle, normal right ventricle size and function, no significant valvular dysfunction, and no pulmonary hypertension. Patient had an episode of tachycardia during exam, weight was 108. Patient denied chest pain or shortness of breath with this pulse rate. I did do a 500 mL 0.9 fluid bolus and also gave her a 5 mg oxycodone for the pain in her right neck and right ear. This was a one-time dose and patient is not driving home. Pulse came down into the high 60s and patient was normal sinus rhythm on the monitor. Patient is stable for discharge. - Time Spent with Patient Total time spent providing and/or coordinating discharge services: Less than 30 minutes - Constitutional Vitals: Temp Pulse Resp BP Pulse Ox 98.8 F 106 16 107/65 98 09/08/16 15:28 09/08/16 15:28 09/08/16 15:28 09/08/16 15:28 09/08/16 15:28 General appearance: Present: cooperative, A&O X 3, pleasant, no acute distress, answers questions appropriately - Head Head exam: Present: normal inspection - Eye Eye exam: Present: normal appearance, conjuntiva pink - ENT ENT exam: Present: mucous membranes moist, normal exam, TM's normal bilaterally - Neck Neck exam general surgery: Present: lymphadenopathy, tenderness Additional comments: Patient has enlarged, painful right anterior cervical node. - Respiratory Respiratory exam: Present: CTAB. Absent: chest wall tenderness, decreased breath sounds, rales, rhonchi, stridor, wheezes, tachypnea - Cardiovascular Cardiovascular exam: Present: RRR, +S1, +S2. Absent: diastolic murmur, systolic murmur - GI/Abdominal GI/Abdominal exam: Present: normal bowel sounds, soft. Absent: hepatomegaly, tenderness - Extremities Exam Extremities exam: Present: normal capillary refill, normal inspection, warm, radial pulses palpable and symetrical. Absent: pedal edema, tenderness - Neurological Exam Neurological exam: Present: alert, oriented X3
--- NOTE | 2016-09-09 12:33 | Electrocardiograph Report ---
[address] [place], [place] [address] Test Date: 2016-09-07 Pat Name: Juan Mijares Department: 105 Room: 3B47 Gender: Flat Folder: : 1995 Requested By: Luz Salinas Order Number: [id number] Reading MD: Lauren Ruiz Measurements Intervals [place] Rate: 117 P: 50 UT: 150 QRS: 103 QRSD: 72 T: 7 QT: 280 QTc: 349 Interpretive Statements SINUS TACHYCARDIA NONSPECIFIC T-WAVE ABNORMALITY MAY INDICATE ISCHEMIA Electronically Signed On 09-09-2016 12:31:36 EDT by Lauren Ruiz
--- NOTE | 2016-09-09 12:40 | Electrocardiograph Report ---
[address] [place], [place] [address] Test Date: 2016-09-07 Pat Name: Juan [facility] Department: 102 Room: 3B47 Gender: F Chief Ii Dispatcher: : 1995 Requested By: Kingsley Gilbert Order Number: [id number] Reading MD: Lauren Ruiz Measurements Intervals [place] Rate: 78 P: 38 [place]: 152 QRS: 92 QRSD: 86 T: 30 QT: 358 QTc: 392 Interpretive Statements SINUS RHYTHM WITH SINUS ARRHYTHMIA BORDERLINE RIGHT AXIS DEVIATION MODERATE T-WAVE ABNORMALITY, CONSIDER ANTERIOR ISCHEMIA Electronically Signed On 09-09-2016 12:38:33 EDT by Lauren Ruiz
--- NOTE | 2016-09-09 12:52 | Electrocardiograph Report ---
[address] [place], [place] [address] Test Date: 2016-09-08 Pat Name: [facility] Department: 113 Room: 3B47 Gender: F [employer]: : 1995 Requested By: Yariel Ash Order Number: [id number] Reading MD: Lauren Ruiz Measurements Intervals [place] Rate: 81 P: 28 TN: 147 QRS: 99 QRSD: 84 T: 41 QT: 340 QTc: 378 Interpretive Statements SINUS RHYTHM WITH SINUS ARRHYTHMIA BORDERLINE RIGHT AXIS DEVIATION POSSIBLE RIGHT VENTRICULAR CONDUCTION DELAY MODERATE T-WAVE ABNORMALITY, CONSIDER ANTERIOR ISCHEMIA Electronically Signed On 09-09-2016 12:50:22 EDT by Lauren Ruiz
== END 2016-09-08 19:05 | disposition home or self-care (01) ==
LOC: EMEROO 14:23 → 3BNU 14:23
PROVIDERS: ADMIT Registered Nurse; ATTEND Registered Nurse